=== PATIENT | male | born 1945 ===

== ENCOUNTER 2017-04-12 23:36 | Observation (INO) | payer OTHER ==
[2017-04-13 00:19] LABS: BASO # 0.1 K/uL (0.0-0.2); BASO % 0.9 % (0.0-2.0); EOS # 0.3 K/uL (0.0-0.7); HEMOGLOBIN 15.3 g/dL (12.0-18.0); LYMPH # 1.8 K/uL (1.0-4.3); LYMPH % 27.1 % (20.0-40.0); MEAN CELL VOLUME 86.2 fl (80.0-94.0); MEAN CORPUSCULAR HEMOGLOBIN 29.2 pg (27.0-31.0); MEAN CORPUSCULAR HGB CONC 33.8 g/dL (33.0-37.0); MEAN PLATELET VOLUME 8.2 fl (7.2-11.7); MONO # 0.6 K/uL (0.0-0.8); MONO % 9.4 % (0.0-10.0); NEUT # 3.9 K/uL (1.8-7.0); NEUT % 57.6 % (50.0-75.0); NRBC % 0.1 % (0.0-0.0); RBC 5.23 Mil/uL (4.40-5.90); RED CELL DISTRIBUTION WIDTH 13.5 % (11.5-14.5); WHITE BLOOD COUNT 6.8 K/uL (4.8-10.8)
[2017-04-13 00:25] LABS: BLOOD UREA NITROGEN 19 mg/dl (9-20); CALCIUM 9.2 mg/dL (8.4-10.2); GFR AFRICAN-AMERICAN > 60; GFR NON-AFRICAN AMERICAN > 60
--- NOTE | 2017-04-13 01:14 | ED PDOC ---
HPI: Chest Pain Time Seen by Provider: 04/12/17 23:46 Chief Complaint (Nursing): Palpitations Chief Complaint (Provider): Chest Pain/Palpitations History Per: Patient History/Exam Limitations: no limitations Onset/Duration Of Symptoms: Days (x4) Current Symptoms Are (Timing): Still Present Additional Complaint(s): Demetrius Chauhan is a 72 year old male with a history of high cholesterol that presents to the ED with a chief complaint of chest pain, shortness of breath, and occasional dizziness and headaches that he has been experiencing for the past four days. Patient states that today he felt more pressure in his chest, as opposed to pain, along with palpitations. He reports associated intermittent numbness that radiates from his left shoulder down to his left hand, but denies any weakness. Of Note: Patient reports anxiety over public speaking that is coming up. Past Medical History Reviewed: Historical Data, Nursing Documentation, Vital Signs Vital Signs: Last Vital Signs Temp 98.0 F 04/12/17 23:43 Pulse 72 04/13/17 01:54 Resp 16 04/13/17 01:54 BP 122/61 04/13/17 01:54 Pulse Ox 98 04/13/17 01:20 - Medical History PMH: Hypercholesterolemia Denies: Chronic Kidney Disease - Surgical History Surgical History: Appendectomy - Family History Family History: States: Unknown Family Hx - Home Medications Home Medications: Ambulatory Orders Medication Instructions Recorded Multivitamin 1 tab PO DAILY 01/17/15 [id number] Ethyl Esters [OMEGA 3] 500 mg PO DAILY 01/17/15 - Allergies Allergies/Adverse Reactions: Allergies Allergy/AdvReac Type Severity Reaction Status Date / Time No Known Allergies Allergy Verified 01/17/15 08:51 Review of Systems Cardiovascular: Positive for: Chest Pain (along with chest pressure), Palpitations Respiratory: Positive for: Shortness of Breath Neurological: Positive for: Numbness (radiating from left shoulder down to left hand, intermittent), Headache (occasional), Dizziness (occasional). Negative for: Weakness Psych: Positive for: Anxiety Physical Exam - Reviewed Nursing Documentation Reviewed: Yes Vital Signs Reviewed: Yes - Physical Exam Appears: Positive for: Non-toxic, No Acute Distress Head Exam: Positive for: ATRAUMATIC, NORMOCEPHALIC Skin: Positive for: Normal Color, Warm Cardiovascular/Chest: Positive for: Regular Rate, Rhythm. Negative for: Murmur Respiratory: Positive for: Normal Breath Sounds. Negative for: Wheezing Gastrointestinal/Abdominal: Positive for: Normal Exam, Soft Extremity: Positive for: Normal ROM. Negative for: Tenderness Neurologic/Psych: Positive for: Alert, supervisor loading II-XII, Oriented. Negative for: Motor/Sensory Deficits - Laboratory Results Result Diagrams: 04/13/17 00:13 04/13/17 00:13 - ECG O2 Sat by Pulse Oximetry: 98 (RA) Pulse Ox Interpretation: Normal Medical Decision Making Medical Decision Making: Impression: Chest Pain vs. Possible Anxiety Plan: * Chest X-Ray * Xanax 0.5 mg PO * Aspirin 162 mg PO * Reevaluation 00:50 Patient placed in Obs in order to rule out ACS. Scribe Attestation: Documented by Elizabeth Ward, acting as a scribe for Ramu Burt MD. Provider Scribe Attestation: All medical record entries made by the Scribe were at my direction and personally dictated by me. I have reviewed the chart and agree that the record accurately reflects my personal performance of the history, physical exam, medical decision making, and the department course for this patient. I have also personally directed, reviewed, and agree with the discharge instructions and disposition. ED OBSERVATION Date of observation admission: 04/13/17 Time of observation admission: 00:50 - Observation admission statement Patient is being placed in observation because:: extensive ED workup - Goals of Observation Goals of observation are:: rule out ACS. - Progress Note Progress Note: 04/13/17 00:50 Patient is in fair condition, admitted to hospital service to rule out ACS. Disposition - Clinical Impression Clinical Impression: Chest pain - Disposition Disposition Time: 00:50 Condition: FAIR
--- NOTE | 2017-04-13 02:23 | CP.PCM.HP ---
History of Present Illness - History of Present Illness History of Present Illness: PCP: Christina Chahuan MD Chief complaint: Chest pain HPI: 72 years old male with hx of HLD and gastritis, comes with 4 days of a chest pain described as a discomfort across the whole chest but radiating to the left shoulder. It is intermittent and not relieved with 2 baby Aspirin. It is accompanied with some palpitation SOB,and headache with mild dizziness. No nausea, vomits, diaphoresis nor cough. He referred being anxious and is due to see his PCP on 04/13/17. Also he was due to make an appoint with Dr Lanza the cathode ray tube assembler. PMH: HLD; Sinusitis; EGD 2015 showed- Duodenitis; Gastritis SH: Appendectomy; Left inguinal hernia repair SH; No illegal drug use; no alcohol; No Smoking of Cigarettes; Live alone; Retired shipping order clerk FH: Unknown Family Hx Allergies: NKDA Medication: [place]-3; MV Present on Admission - Present on Admission Any Indicators Present on Admission: No History of DVT/PE: No History of Uncontrolled Diabetes: No Urinary Catheter: No Decubitus Ulcer Present: No Review of Systems - Constitutional Constitutional: absent: Anorexia, Chills, Fatigue, Fever, Headache, Weakness - EENT Eyes: Requires Corrective Lenses. absent: Diplopia, Floaters, Photophobia Ears: absent: Decreased Hearing, Ear Discharge, Ear Pain, Tinnitus Nose/Mouth/Throat: absent: Epistaxis, Nasal Congestion, Nasal Discharge - Cardiovascular Cardiovascular: Chest Pain, Dyspnea, Palpitations. absent: Diaphoresis, Edema - Respiratory Respiratory: Cough. absent: Dyspnea, Wheezing, Chest Congestion - Gastrointestinal Gastrointestinal: absent: Constipation, Diarrhea, Nausea, Vomiting - Genitourinary Genitourinary: absent: Dysuria, Flank Pain, Hematuria, Urinary Frequency - Musculoskeletal Musculoskeletal: absent: Arthralgias, Numbness Additional comments: Right ankle pain - Integumentary Integumentary: absent: Pruritus, Rash, Skin Ulcer, Sores, Striae, Swelling - Neurological Neurological: Dizziness, Headaches. absent: Confusion, Focal Weakness, Weakness - Psychiatric Psychiatric: Anxiety. absent: Depression, Panic Attacks - Endocrine Endocrine: absent: Excessive Sweating, Polydipsia, Polyphagia, Polyuria - Hematologic/Lymphatic Hematologic: absent: Easy Bleeding, Easy Bruising Past Patient History - Past Medical History & Family History Past Medical History?: Yes - Past Social History Smoking Status: Never Smoked Chewing Tobacco Use: Yes Alcohol: None Drugs: Denies Home Situation {Lives}: With Family - CARDIAC Hx Hypercholesterolemia: Yes - PULMONARY Hx Respiratory Disorders: No - NEUROLOGICAL Hx Neurological Disorder: No - HEENT Hx HEENT Problems: No - RENAL Hx Chronic Kidney Disease: No - ENDOCRINE/METABOLIC Hx Endocrine Disorders: No - HEMATOLOGICAL/ONCOLOGICAL Hx Blood Disorders: No - INTEGUMENTARY Hx Dermatological Problems: No - MUSCULOSKELETAL/RHEUMATOLOGICAL Hx Musculoskeletal Disorders: No - GASTROINTESTINAL Hx Gastrointestinal Disorders: Yes Hx Gastritis: Yes Hx Gastroesophageal Reflux: Yes - GENITOURINARY/GYNECOLOGICAL Hx Genitourinary Disorders: No - PSYCHIATRIC Hx Psychophysiologic Disorder: No Hx Substance Use: No - SURGICAL HISTORY Hx Appendectomy: Yes Hx Herniorrhaphy: Yes - ANESTHESIA Hx Anesthesia: Yes Hx Anesthesia Reactions: No Hx Malignant Hyperthermia: No Meds Allergies/Adverse Reactions: Allergies Allergy/AdvReac Type Severity Reaction Status Date / Time No Known Allergies Allergy Verified 01/17/15 08:51 Physical Exam - Constitutional Appears: No Acute Distress - Head Exam Head Exam: ATRAUMATIC, NORMAL INSPECTION, NORMOCEPHALIC - Eye Exam Eye Exam: EOMI, Normal appearance Pupil Exam: NORMAL ACCOMODATION, PERRL - ENT Exam ENT Exam: Mucous Membranes Moist, Normal Exam, Normal External Ear Exam, Normal Oropharynx - Neck Exam Neck exam: Positive for: Full Rom, Normal Inspection. Negative for: Lymphadenopathy, Tenderness - Respiratory Exam Respiratory Exam: Clear to Auscultation Bilateral. absent: Rales, Rhonchi, Wheezes, Stridor - Cardiovascular Exam Cardiovascular Exam: REGULAR RHYTHM, RRR, +S1, +S2. absent: Gallop, JVD - GI/Abdominal Exam GI & Abdominal Exam: Normal Bowel Sounds, Soft. absent: Mass, Tenderness - Rectal Exam Rectal Exam: Deferred - Extremities Exam Extremities exam: Positive for: full ROM, normal inspection, pedal edema. Negative for: calf tenderness - Back Exam Back exam: NORMAL INSPECTION. absent: CVA tenderness (L), CVA tenderness (R) - Neurological Exam Neurological exam: Alert, CN II-XII Intact, Oriented x3, Reflexes Normal - Psychiatric Exam Psychiatric exam: Normal Affect, Normal Mood - Skin Skin Exam: Dry, Intact, Normal Color, Warm Results - Vital Signs Recent Vital Signs: Last Vital Signs Temp 98.0 F 04/12/17 23:43 Pulse 72 04/13/17 01:54 Resp 16 04/13/17 01:54 BP 122/61 04/13/17 01:54 Pulse Ox 98 04/13/17 01:20 - Labs Result Diagrams: 04/13/17 00:13 04/13/17 00:13 Assessment & Plan - Assessment and Plan (Free Text) Plan: 72 years old male with hx of HLD and gastritis, comes with 4 days of a chest pain described as a discomfort across the whole chest but radiating to the left shoulder. It is intermittent and not relieved with 2 baby Aspirin. It is accompanied with some palpitation SOB,and headache with mild dizziness. He was due to make an appoint with Dr Lanza the cathode ray tube assembler. #. Chest pain r/o ACS - consult Dr lanza cathode ray tube assembler - Serial Troponin - serial EKG - ECHO for wall motion - ASA #. HLD - Follow Lipid profile #. Duodenitis - Pepcid #. DVT prophylaxis with Lovenox #. Code Status: Full - Date & Time Date: 04/13/17 Time: 02:23
[2017-04-13 02:39] VITALS: RESP 18
--- NOTE | 2017-04-13 07:34 | CARD ---
APPROVED REPORT EKG Measurement Heart [id number] [id number] <Conclusion> Normal sinus rhythm Normal ECG
[2017-04-13 07:49] LABS: HDL CHOLESTEROL 38 MG/DL (30-70)
[2017-04-13 08:00] LABS: LDL CHOLESTEROL 153 mg/dL (0-129)
[2017-04-13] MEDS ORDERED: MULTIVITAMIN PO SCH (09:00)
[2017-04-13] MEDS ORDERED: Enoxaparin 40 mg Syringe SC SCH (09:00)
[2017-04-13] MEDS ORDERED: Multivitamin With Minerals Tab PO SCH (09:00)
--- NOTE | 2017-04-13 09:28 | RAD ---
HISTORY: cp, sob COMPARISON: No prior. TECHNIQUE: Chest PA and lateral FINDINGS: LUNGS: No active pulmonary disease. PLEURA: No significant pleural effusion identified. No pneumothorax apparent. CARDIOVASCULAR: Normal. OSSEOUS STRUCTURES: No significant abnormalities. VISUALIZED UPPER ABDOMEN: Normal. OTHER FINDINGS: None. IMPRESSION: No active disease.
--- NOTE | 2017-04-13 10:06 | CARD ---
APPROVED REPORT EXAM: Two-dimensional and M-mode echocardiogram with Doppler and color Doppler. Other Information Quality : GoodRhythm : NSR INDICATION Chest Pain 2D DIMENSIONS IVSd1.68 (0.7-1.1cm)LVDd3.34 (3.9-5.9cm) LVOT Diameter2.09 (1.8-2.4cm)PWd1.11 (0.7-1.1cm) IVSs1.82 (0.8-1.2cm)LVDs2.12 (2.5-4.0cm) FS (%) 36.4 %PWs1.41 (0.8-1.2cm) M-Mode DIMENSIONS Left Atrium (MM)3.60 (2.5-4.0cm)IVSd0.82 (0.7-1.1cm) Aortic Root3.11 (2.2-3.7cm)LVDd4.66 (4.0-5.6cm) Aortic Cusp Exc.2.26 (1.5-2.0cm)PWd0.80 (0.7-1.1cm) IVSs1.29 cmFS (%) 43 % LVDs2.65 (2.0-3.8cm)PWs1.47 cm Mitral Valve MV E Kwezzrlt38.2cm/sMV DECEL [id number] A Ryblhywl67.0cm/s MV WAG85kmB/A ratio0.9MVA (PHT)3.52cm2 TDI Lateral E' Peak V10.02cm/sMedial E' Peak V5.21cm/sE/Lateral E'4.7 E/Medial E'9.1 Pulmonary Valve PV Peak Kxdwyzef48.2cm/s LEFT VENTRICLE The left ventricle is normal size. There is normal left ventricular wall thickness. Left ventricle systolic function is normal. The Ejection Fraction is >70%. There is normal LV segmental wall motion. Transmitral Doppler flow pattern is Grade I-abnormal relaxation pattern. RIGHT VENTRICLE The right ventricle is normal size. There is normal right ventricular wall thickness. The right ventricular systolic function is normal. ATRIA The left atrium size is normal. The right atrium size is normal. AORTIC VALVE The aortic valve is normal in structure and function. No aortic regurgitation is present. There is no aortic valvular stenosis. MITRAL VALVE The mitral valve is normal in structure and function. There is no evidence of mitral valve prolapse. There is no mitral valve stenosis. There is no mitral valve regurgitation noted. TRICUSPID VALVE The tricuspid valve is normal in structure and function. There is no tricuspid valve regurgitation noted. PULMONIC VALVE The pulmonary valve is normal in structure and function. There is mild pulmonic valvular regurgitation. GREAT VESSELS The aortic root is normal in size. Due to poor image quality, the IVC could not be assessed. PERICARDIAL EFFUSION The pericardium appears normal. <Conclusion> The left ventricle is normal size. There is normal left ventricular wall thickness. There is normal LV segmental wall motion. Left ventricle systolic function is normal. The Ejection Fraction is >70%. Transmitral Doppler flow pattern is Grade I-abnormal relaxation pattern.
--- NOTE | 2017-04-13 10:16 | CARD ---
APPROVED REPORT EKG Measurement Heart [id number] [place] 204P6 [id number] <Conclusion> Normal sinus rhythm normal ECG
--- NOTE | 2017-04-13 11:08 | CP.PCM.DIS ---
Provider - Provider Date of Admission: 04/13/17 00:50 Attending physician: Geovany Moreno Primary care physician: Christina Chauhan MD Time Spent in preparation of Discharge (in minutes): 30 Diagnosis - Discharge Diagnosis (1) Chest pain not due to acute coronary syndrome Status: Resolved Comment: r/o ACS (2) Anxiety Status: Acute Comment: recommended to see behavioral therapist to follow up on outpatient basis (3) Hyperlipidemia Status: Acute Comment: statin therapy offered; pt declined and stated he prefers to follow up with PCP Hospital Course - Lab Results Lab Results: Most Recent Lab Values WBC 6.8 K/uL (4.8-10.8) 04/13/17 00:13 RBC 5.23 Mil/uL (4.40-5.90) 04/13/17 00:13 Hgb 15.3 g/dL (12.0-18.0) 04/13/17 00:13 Hct 45.1 % (35.0-51.0) 04/13/17 00:13 MCV 86.2 fl (80.0-94.0) 04/13/17 00:13 MCH 29.2 pg (27.0-31.0) 04/13/17 00:13 MCHC 33.8 g/dL (33.0-37.0) 04/13/17 00:13 RDW 13.5 % (11.5-14.5) 04/13/17 00:13 Plt Count 172 K/uL (130-400) 04/13/17 00:13 MPV 8.2 fl (7.2-11.7) 04/13/17 00:13 Neut % (Auto) 57.6 % (50.0-75.0) 04/13/17 00:13 Lymph % (Auto) 27.1 % (20.0-40.0) 04/13/17 00:13 [place] % (Auto) 9.4 % (0.0-10.0) 04/13/17 00:13 Eos % (Auto) 5.0 % (0.0-4.0) H 04/13/17 00:13 Baso % (Auto) 0.9 % (0.0-2.0) 04/13/17 00:13 Neut # 3.9 K/uL (1.8-7.0) 04/13/17 00:13 Lymph # 1.8 K/uL (1.0-4.3) 04/13/17 00:13 [place] # 0.6 K/uL (0.0-0.8) 04/13/17 00:13 Eos # 0.3 K/uL (0.0-0.7) 04/13/17 00:13 Baso # 0.1 K/uL (0.0-0.2) 04/13/17 00:13 Sodium 139 mmol/l (132-148) 04/13/17 00:13 Potassium 4.1 MMOL/L (3.6-5.0) 04/13/17 00:13 Chloride 104 mmol/L (98-107) 04/13/17 00:13 Carbon Dioxide 28 mmol/L (22-30) 04/13/17 00:13 Anion Gap 11 (10-20) 04/13/17 00:13 BUN 19 mg/dl (9-20) 04/13/17 00:13 Creatinine 1.0 mg/dL (0.8-1.5) 04/13/17 00:13 Est GFR ( Amer) > 60 04/13/17 00:13 Est GFR (Non-Af Amer) > 60 04/13/17 00:13 Random Glucose 110 mg/dL (75-110) 04/13/17 00:13 Calcium 9.2 mg/dL (8.4-10.2) 04/13/17 00:13 Troponin I < 0.0120 ng/mL (0.00-0.120) 04/13/17 07:15 Triglycerides 83 mg/DL (0-149) 04/13/17 07:15 Cholesterol 202 mg/dL (0-199) H 04/13/17 07:15 LDL Cholesterol Direct 153 mg/dL (0-129) H 04/13/17 07:15 HDL Cholesterol 38 MG/DL (30-70) 04/13/17 07:15 - Hospital Course Hospital Course: Patient is a 72 yo M with PMH gastritis and hypercholesterolemia who presented to the ED with chest pain 4 days duration. Patient also mentioned that he was nervous due to an upcoming public speaking event. In the ED, patient and vital signs remained stable. Troponin in ED was negative, CXR and EKG were unremarkable for any acute changes. Pt was given xanax and aspirin and was admitted for observation to r/o acute chest syndrome. Echo, serial EKG, serial troponins, lipid profile, pepcid, dvt prophylaxis with lovenox were ordered. Echo showed no venticular dysfunction, no wall motion abnormalities, and EF > 70 %, lipid panel showed mildly elevated cholesterol, repeat EKG was sinus rhythm, repeat troponin was negative. By this morning, pt's symptoms resolved- he denied chest pain, shortness of breath, dizziness, numbness, and overall stated that he felt much better than yesterday. Pt also stated that he has a scheduled appointment with his PCP later today. - Date & Time of H&P Date of H&P: 04/13/17 Time of H&P: 02:23 Discharge Exam - Head Exam Head Exam: ATRAUMATIC, NORMAL INSPECTION, NORMOCEPHALIC - Eye Exam Eye Exam: EOMI, Normal appearance, PERRL - ENT Exam ENT Exam: Mucous Membranes Moist - Respiratory Exam Respiratory Exam: Clear to PA & Lateral, NORMAL BREATHING PATTERN, UNREMARKABLE - Cardiovascular Exam Cardiovascular Exam: REGULAR RHYTHM, +S1, +S2 - GI/Abdominal Exam GI & Abdominal Exam: Normal Bowel Sounds, Soft - Extremities Exam Extremities exam: normal inspection - Neurological Exam Neurological exam: Alert, Oriented x3 - Psychiatric Exam Psychiatric exam: Normal Mood - Skin Skin Exam: Dry, Intact, Warm Discharge Plan - Follow Up Plan Condition: FAIR Disposition: HOME/ ROUTINE Additional Instructions: Please follow up with your scheduled appointment with your PCP today. Return to ED if you experience new onset chest pain or shortness of breath. Referrals: Christina Chauhan MD [Primary Care Provider] -
[2017-04-13 12:14] VITALS: BP 134/75; PULSE 62; TEMP 98.1; O2SAT 95
== END 2017-04-13 12:30 | disposition home or self-care (01) ==
LOC: H.ER 23:36 → H.ERHOLD 04-13 00:50 → H.TEL 04-13 02:05
PROVIDERS: ADMIT Internal Medicine; ATTEND Internal Medicine
DX: R07.89 Other chest pain (principal); K29.80 Duodenitis without bleeding; K29.70 Gastritis, unspecified, without bleeding; K21.9 Gastro-esophageal reflux disease without esophagitis; E78.5 Hyperlipidemia, unspecified; F41.9 Anxiety disorder, unspecified; E78.00 Pure hypercholesterolemia, unspecified; K40.90 Unilateral inguinal hernia, without obstruction or gangrene, not specified as recurrent; Z72.0 Tobacco use
CPT/HCPCS: 71020; 80048; 80061; 82948; 84484; 85025; 93005; 93306; 99285; G0378; J1650

== ENCOUNTER 2018-03-07 18:12 | Emergency (ER) | payer OTHER ==
[2018-03-07 18:35] VITALS: BP 159/87; PULSE 78; RESP 18; TEMP 98.3; O2SAT 99
[2018-03-07] MEDS ORDERED: Amoxicillin-Clav 875-125 mg Tab PO STA (19:10)
--- NOTE | 2018-03-07 19:52 | ED PDOC ---
HPI: Dental Pain/Injury Time Seen by Provider: 03/07/18 18:36 Chief Complaint (Nursing): Dental Pain Chief Complaint (Provider): Dental pain History Per: Patient History/Exam Limitations: no limitations Onset/Duration Of Symptoms: Days (x1) Current Symptoms Are (Timing): Still Present Severity: Moderate Quality: Other (throbbing) Additional Complaint(s): Patient is a 73 y/o male who presents to the ED for evaluation of left lower tooth ache, onset yesterday afternoon. Patient states that the pain worsened through the night and was unrelieved by Advil at 13:00, which prompted ED visit. Patient reports that the affected tooth has a filling in place. Denies any recent dental work. He denies fever, chills, facial swelling, SOB, throat pain, as well as any difficulty speaking or swallowing. No other complaints at this time. PMD: Christina Chauhan Past Medical History Reviewed: Historical Data, Nursing Documentation, Vital Signs Vital Signs: Last Vital Signs Temp 98.3 F 03/07/18 18:32 Pulse 78 03/07/18 18:32 Resp 18 03/07/18 18:32 BP 159/87 H 03/07/18 18:32 Pulse Ox 99 03/07/18 18:32 - Medical History PMH: Anxiety, Gastritis, HTN, Hypercholesterolemia - Surgical History Surgical History: Appendectomy, Hernia Repair - Family History Family History: States: Unknown Family Hx - Social History Current smoker - smoking cessation education provided: No Alcohol: None Drugs: Denies - Home Medications Home Medications: Ambulatory Orders Medication Instructions Recorded Multivitamin 1 tab PO DAILY 01/17/15 Ioqez-2-Uplu Ethyl Esters [OMEGA 3] 500 mg PO DAILY 01/17/15 Acetaminophen [Acetaminophen 8 650 mg PO Q8 PRN #21 tablet.er 03/07/18 Hour] Amoxicillin/Clavulanate [Augmentin 1 tab PO BID #14 tab 03/07/18 875 MG-125 MG] Meloxicam [Mobic] 15 mg PO DAILY PRN #10 tab 03/07/18 - Allergies Allergies/Adverse Reactions: Allergies Allergy/AdvReac Type Severity Reaction Status Date / Time No Known Allergies Allergy Verified 01/17/15 08:51 Review of Systems ROS Statement: Except As Marked, All Systems Reviewed And Found Negative Constitutional: Negative for: Fever, Chills ENT: Positive for: Mouth Pain (tooth ache). Negative for: Throat Pain, Other ( difficulty speaking or swallowing) Physical Exam - Reviewed Nursing Documentation Reviewed: Yes Vital Signs Reviewed: Yes - Physical Exam Comments: GENERAL APPEARANCE: Patient is awake, alert, oriented x3; resting comfortably, no acute distress. SKIN: Warm, dry; (-) cyanosis. EYES: (-) conjunctival pallor, (-) scleral icterus. ENMT: Left lower posterior most molar has filling in place. (+) tenderness, mild surrounding gingival erythema and inflammation. (-) fluctuance; pharnyx clear, uvula midline; (-) exudate. Tympanic membranes: non bulging, nonerythematous bilaterally. Airway patent (-) stridor. Mucus membranes moist. NECK: Supple FROM (-) tenderness, (-) stiffness, (-) lymphadenopathy. CHEST AND RESPIRATORY: (-) rales, (-) rhonchi, (-) wheezes; breath sounds equal bilaterally. Speaking in full sentences, respirations nonlabored. HEART AND CARDIOVASCULAR: (-) irregularity; (-) murmur, (-) gallop. NEURO AND PSYCH: Mental status as above; (-) focal findings. Gait steady, speech clear. - ECG O2 Sat by Pulse Oximetry: 99 (RA) Pulse Ox Interpretation: Normal Medical Decision Making Medical Decision Making: Time: 19:10 Initial Impression: Toothache, probable dental infection Initial Plan: --Augmentin 875MG- 125 MG PO --Toradol 15mg IM --Ultram 50mg PO (Patient is not driving home) --Reevaluation Time: 19:32 Upon provider evaluation patient is medically stable, and requires no further treatment in the ED at this time. Patient will be discharged home with Rx for 650 mg pO Q8 Acetaminophen, Aumentin 875 MG -125 MG 1 tab PO BID, Mobic 15 mg PO. Counseling was provided and all questions were answered regarding diagnosis and need for follow up with dentist/PMD. There is agreement to discharge plan. Return if symptoms persist or worsen. Vitals stable. Scribe Attestation: Documented by Albert Caldwell, acting as a scribe for Serenity Shaw PA-C Provider Scribe Attestation: All medical record entries made by the Scribe were at my direction and personally dictated by me. I have reviewed the chart and agree that the record accurately reflects my personal performance of the history, physical exam, medical decision making, and the department course for this patient. I have also personally directed, reviewed, and agree with the discharge instructions and disposition. Disposition - Clinical Impression Clinical Impression: Pain, dental, Dental infection - Patient ED Disposition Is Patient to be Admitted: No Counseled Patient/Family Regarding: Diagnosis, Need For Followup, Rx Given - Disposition Referrals: Christina Chauhan MD [Family Provider] - Disposition: Routine/Home Disposition Time: 19:32 Condition: STABLE Additional Instructions: FOLLOW UP WITH PMD/DENTAL FOR FURTHER EVALUATION AND PAIN MANAGEMENT. RETURN TO ED WITH ANY NEW OR WORSENING SYMPTOMS. Prescriptions: Acetaminophen [Acetaminophen 8 Hour] 650 mg PO Q8 PRN #21 tablet.er PRN Reason: Pain, Moderate (4-7) Amoxicillin/Clavulanate [Augmentin 875 MG-125 MG] 1 tab PO BID #14 tab Meloxicam [Mobic] 15 mg PO DAILY PRN #10 tab PRN Reason: Pain, Severe (8-10) Instructions: Dental Pain (DC), How to Care for Your Mouth and Teeth Forms: [facility] (Syrian) Print Language: MOLDOVAN - POA Present On Arrival: None
== END 2018-03-07 19:41 | disposition home or self-care (01) ==
LOC: H.ER 18:12
DX: K04.7 Periapical abscess without sinus (principal); E78.00 Pure hypercholesterolemia, unspecified; F41.9 Anxiety disorder, unspecified; I10 Essential (primary) hypertension
CPT/HCPCS: 96372; 99282; J1885